=== PATIENT | male | born 1955 | race African-American/Black ===

== ENCOUNTER 2016-05-22 12:49 | Emergency (ER) | payer BC ==
[~2016-05-22] VITALS: Ht 177.8 cm; Wt 70.0 kg
[2016-05-22 12:50] VITALS: BP 133/63; PULSE 67; RESP 15; TEMP 98.1; O2SAT 98
[2016-05-22] MEDS ORDERED: IBUP200C PO (13:03)
[2016-05-22] MEDS ORDERED: PRED50 PO (13:10)
[2016-05-22] MEDS ORDERED: IBUP800T23 PO (13:10)
[2016-05-22] MEDS ORDERED: CYCL1TAB29 PO (13:10)
--- NOTE | 2016-05-22 13:11 | PD ---
HPI Chief Complaint: Hip Injury Time Seen by Provider: 13:06 Travel History International Travel<30 days: No Contact w/Intl Traveler<30days: No Traveled to known affect area: No History of Present Illness HPI Patient is a 61-year-old male who presents emergency for evaluation of right hip pain. Patient denies any injury or trauma. He states the pain started on after work. He did take ibuprofen night and Sunday which relieved his symptoms. He denies any weakness, numbness, bladder or bowel incontinence, saddle paresthesia. He states he's had pain like this before but it's worse now. He thinks it is arthritis since it got worse with cold weather. PFSH Past Medical History Medical History: Denies Significant Hx Social History Alcohol Use: No Tobacco Use: No Substance Use: No Allergies-Medications (Allergen,Severity, Reaction): Coded Allergies: No Known Allergies (Unverified , 05/22/16) Reported Meds & Prescriptions Reported Meds & Active Scripts Active Reported Ibuprofen 200 Mg Cap 200 Mg PO Q6H PRN Review of Systems Except as stated in HPI: all other systems reviewed are Neg Musculoskeletal: Positive: Myalgias, Arthralgias, Pain Physical Exam Narrative GENERAL: Well-nourished, well-developed patient. SKIN: Warm and dry. HEAD: Normocephalic. EYES: No scleral icterus. No injection or drainage. NECK: Supple, trachea midline. No JVD or lymphadenopathy. CARDIOVASCULAR: Regular rate and rhythm without murmurs, gallops, or rubs. RESPIRATORY: Breath sounds equal bilaterally. No accessory muscle use. GASTROINTESTINAL: Abdomen soft, non-tender, nondistended. MUSCULOSKELETAL: No cyanosis, or edema. Tenderness to palpation in right hip on the lateral aspect, no erythema, obvious deformities noted. 5/5 muscle strength in bilateral lower extremities. Patient is neurovascularly intact. BACK: Nontender without obvious deformity. No CVA tenderness. Data Data Last Documented VS Vital Signs Date Time Temp Pulse Resp B/P Pulse Ox O2 Delivery O2 Flow Rate FiO2 05/22/16 12:50 98.1 67 15 133/63 98 MDM Medical Decision Making Medical Screen Exam Complete: Yes Emergency Medical Condition: Yes Interpretation(s) Vital Signs Date Time Temp Pulse Resp B/P Pulse Ox O2 Delivery O2 Flow Rate FiO2 05/22/16 12:50 98.1 67 15 133/63 98 Differential Diagnosis Sprain versus strain versus arthritis versus bursitis versus tendinitis versus other Narrative Course Patient is a 61-year-old male who presents emergency for evaluation of right hip pain that started approximately 5 days ago. Pain is relieved with ibuprofen. Patient is neurovascularly intact, no obvious deformities noted. There was no injury or trauma. Patient is encouraged to take medications as directed, apply warm moist heat to affected area, continue range of motion exercises. Furthermore patient is encouraged to follow-up with her primary care provider return to emergency department for any new or worsening symptoms. Patient verbalizes understanding of these instructions. Patient is stable for discharge. Of note patient was observed ambulating in the emergency department without difficulty. Diagnosis Primary Impression: Hip pain, right Referrals: Primary Care Physician Patient Instructions: General Instructions, Hip Pain (ED) Additional Instructions: Follow-up with a primary doctor Take medications as directed Warm moist heat to affected area, continue range of motion exercises Return to the emergency department for any new or worsening symptoms Med/Other Pt SpecificInfo: Prescription(s) given Scripts Prednisone 50 Mg Tab50 Mg PO DAILY #5 TAB Ref 0 Prov:Carlyn Dutta 05/22/16 Cyclobenzaprine (Flexeril)10 Mg Tab10 Mg PO TID PRN (MUSCLE SPASM) 7 Days Ref 0 Prov:Carlyn Dutta 05/22/16 Ibuprofen 800 Mg [id number] Mg PO Q8H PRN (Pain/Inflammation) #60 TAB Ref 0 Prov:Carlyn Dutta 05/22/16 Disposition: 01 DISCHARGE HOME Condition: Stable Carlyn Dutta May 22, 2016 13:10
== END 2016-05-22 13:45 | disposition home or self-care (01) ==
LOC: NEPB 12:49
DX: M25.551 Pain in right hip (principal)
CPT/HCPCS: 99283

== ENCOUNTER 2016-09-19 17:58 | Emergency (ER) | payer BC ==
[~2016-09-19] VITALS: Ht 177.8 cm; Wt 68.0 kg
[~2016-09-19 17:58] MED LIST: CYCL1TAB29 PO; IBUP200C PO; IBUP800T23 PO; PRED50 PO
[2016-09-19 17:59] VITALS: BP 128/57; PULSE 79; RESP 15; TEMP 97.8; O2SAT 98
--- NOTE | 2016-09-19 18:13 | PD ---
Physical Exam Date Seen by Provider: September 19, 2016 Time Seen by Provider: 18:12 Narrative 61 yo male that presents to the ED for right hip pain. Playing basketball on sunday. Able to walk. Ibuprofen helps. Told work he could make it today. Came here to get it checked. No numbness, tingling or weakness. Ambulatory and in no distress seen at triage. Vitals sign stable. Patient awaiting bed placement. Data Data Last Documented VS Vital Signs Date Time Temp Pulse Resp B/P Pulse Ox O2 Delivery O2 Flow Rate FiO2 09/19/16 17:59 97.8 79 15 128/57 98 MDM Medical Record Reviewed: Yes Supervised Visit with АЛЕКСАНДР: No Mansoor Gore September 19, 2016 18:13
[2016-09-19] MEDS ORDERED: IBUP800T23 PO (18:25)
[2016-09-19] MEDS ORDERED: CYCL1TAB29 PO (18:25)
--- NOTE | 2016-09-19 18:26 | PD ---
HPI Chief Complaint: Musculoskeletal Complaint Time Seen by Provider: 18:22 (Carlyn Dutta) Time Seen by Provider: 18:21 (Allie Baltazar MD) Travel History International Travel<30 days: No Contact w/Intl Traveler<30days: No Traveled to known affect area: No (Carlyn Dutta) History of Present Illness HPI Patient is a 61-year-old male presenting with right hip pain after falling on his right buttock Sunday playing basketball. He states that he called out sick for work today and his work is requesting a note prior to him coming back. He reports the pain is a 3 out of 10, he states it's sore but he has no issues with walking, weakness, numbness. (Carlyn Dutta) [facility] Past Medical History Medical History: Denies Significant Hx (Carlyn Dutta) Social History Alcohol Use: No Tobacco Use: No Substance Use: No (Carlyn Dutta) Allergies-Medications (Allergen,Severity, Reaction): Coded Allergies: No Known Allergies (Unverified , 05/22/16) Reported Meds & Prescriptions Reported Meds & Active Scripts Active Flexeril (Cyclobenzaprine HCl) 10 Mg Tab 10 Mg PO TID PRN 10 Days Ibuprofen 800 Mg Tab 800 Mg PO Q6HR PRN Prednisone 50 Mg Tab 50 Mg PO DAILY Flexeril (Cyclobenzaprine HCl) 10 Mg Tab 10 Mg PO TID PRN 7 Days Ibuprofen 800 Mg Tab 800 Mg PO Q8H PRN Reported Ibuprofen 200 Mg Cap 200 Mg PO Q6H PRN (Allie Baltazar MD) Review of Systems Except as stated in HPI: all other systems reviewed are Neg Musculoskeletal: Positive: Myalgias, No: Edema, Pain Skin: No Change in Pigmentation (Carlyn Dutta) Physical Exam Narrative GENERAL: Well-developed, well-nourished, alert male. SKIN: Focused skin assessment warm/dry. HEAD: Atraumatic. Normocephalic. EYES: Pupils equal and round. No scleral icterus. No injection or drainage. ENT: No nasal bleeding or discharge. Mucous membranes pink and moist. NECK: Trachea midline. No JVD. CARDIOVASCULAR: Regular rate and rhythm. No murmur appreciated. RESPIRATORY: No accessory muscle use. Clear to auscultation. Breath sounds equal bilaterally. GASTROINTESTINAL: Abdomen soft, non-tender, nondistended. Hepatic and splenic margins not palpable. MUSCULOSKELETAL: No obvious deformities. No clubbing. No cyanosis. No edema. NEUROLOGICAL: Awake and alert. No obvious cranial nerve deficits. Motor grossly within normal limits. Normal speech. PSYCHIATRIC: Appropriate mood and affect; insight and judgment normal. (Carlyn Dutta) Data Data Last Documented VS Vital Signs Date Time Temp Pulse Resp B/P Pulse Ox O2 Delivery O2 Flow Rate FiO2 09/19/16 17:59 97.8 79 15 128/57 98 (Allie Baltazar MD) [facility] Medical Decision Making Medical Screen Exam Complete: Yes Emergency Medical Condition: Yes Interpretation(s) Vital Signs Date Time Temp Pulse Resp B/P Pulse Ox O2 Delivery O2 Flow Rate FiO2 09/19/16 17:59 97.8 79 15 128/57 98 Differential Diagnosis Sprain versus strain versus fracture versus other (Carlyn Dutta) Medical Screen Exam Complete: Yes Emergency Medical Condition: Yes Differential Diagnosis Differential diagnosis of joint pain includes but is not limited to arthritis, gout, sprain/strain, fracture, dislocation Narrative Course Patient presents for evaluation of pain. (Allie Baltazar MD) Diagnosis Primary Impression: Hip pain, right Referrals: [facility] Primary Care Physician Patient Instructions: General Instructions, Hip Contusion (ED), Hip Pain (GEN) Additional Instructions: Follow-up with your primary doctor Apply warm heat to the effected area, continue range of motion exercises, avoid bed rest, avoid exacerbating activities Follow-up in the emergency department for any new or worsening symptoms Med/Other Pt SpecificInfo: Prescription(s) given (Carlyn Dutta) Scripts Cyclobenzaprine (Flexeril)10 Mg Tab10 Mg PO TID PRN (MUSCLE SPASM) 10 Days Ref 0 Prov:Carlyn Dutta 09/19/16 Ibuprofen 800 Mg [id number] Mg PO Q6HR PRN (PAIN) #40 TAB Ref 0 Prov:Carlyn Dutta 09/19/16 Disposition: 01 DISCHARGE HOME Condition: Stable Carlyn Dutta September 19, 2016 18:25 Allie Baltazar MD Sep 21, 2016 21:37
== END 2016-09-19 18:36 | disposition home or self-care (01) ==
LOC: NEPK 17:58
DX: M25.551 Pain in right hip (principal); W18.39XA Other fall on same level, initial encounter; Y93.67 Activity, basketball
CPT/HCPCS: 99283

== ENCOUNTER 2017-06-26 11:06 | Emergency (ER) | payer OTHER ==
[~2017-06-26] VITALS: Ht 177.8 cm; Wt 65.0 kg
[~2017-06-26 11:06] MED LIST changes: +CYCL10TA PO; -CYCL1TAB29 PO; +IBUP1TAB7 PO; -IBUP800T23 PO
[2017-06-26 11:20] VITALS: BP 136/63; PULSE 70; RESP 17; TEMP 98.4; O2SAT 99
--- NOTE | 2017-06-26 11:33 | PD ---
HPI Chief Complaint: Pain: Acute or Chronic Time Seen by Provider: 11:26 Travel History International Travel<30 days: No Contact w/Intl Traveler<30days: No Traveled to known affect area: No History of Present Illness HPI Patient comes to the emergency department complaining of right hip pain that he awoke with on Sunday. Patient reports pain is a sharp stabbing pain in his hip that comes and goes. Denies any radiation of pain. Pain is worse with quick movement. Patient been taking [id number] medication for pain control that seems to be helping. Patient reports the pain was so bad on Sunday he had to call out of work and just rested in bed. Patient reports pain is much better today but his job is requiring a note for him to go back to work. Patient reports he feels as though he can do his job without any limitations. Patient denies any fevers, numbness or tingling anywhere, IV drug use, trauma, or loss change in bowel or bladder. PFSH Past Medical History Medical History: Denies Significant Hx Social History Alcohol Use: No Tobacco Use: Yes Substance Use: No Allergies-Medications (Allergen,Severity, Reaction): Coded Allergies: No Known Allergies (Unverified , 05/22/16) Reported Meds & Prescriptions Reported Meds & Active Scripts Active Flexeril (Cyclobenzaprine HCl) 10 Mg Tab 10 Mg PO TID PRN 10 Days Ibuprofen 800 Mg Tab 800 Mg PO Q6HR PRN Prednisone 50 Mg Tab 50 Mg PO DAILY Flexeril (Cyclobenzaprine HCl) 10 Mg Tab 10 Mg PO TID PRN 7 Days Ibuprofen 800 Mg Tab 800 Mg PO Q8H PRN Reported Ibuprofen 200 Mg Cap 200 Mg PO Q6H PRN Review of Systems Except as stated in HPI: all other systems reviewed are Neg Physical Exam Narrative GENERAL: Well-developed, well nourished, in no acute distress, and non-ill appearing. SKIN: Focused skin assessment warm and dry. HEAD: Atraumatic. Normocephalic. EYES: Pupils equal and round. EOMI. No scleral icterus. No injection or drainage. ENT: No nasal bleeding or discharge. Mucous membranes pink and moist. NECK: Trachea midline. Supple. No nuclear rigidity. CARDIOVASCULAR: Dorsal pulses 2+, intact, and equal bilaterally. RESPIRATORY: No accessory muscle use. No respiratory distress. MUSCULOSKELETAL: No obvious deformities. No clubbing. No cyanosis. No edema. Full range of motion. Hip: FROM and equal BL with passive flexion, extension, Abduction, Adduction, and internal/external rotation. Pulses equal BL distal to injury. Capillary refill less than 2 seconds distal to injury and equal BL. FROM distal to injury and equal BL. Strength distal to injury equal BL. NV intact distal to injury and equal BL. Plantar flexion and dorsal flexion equal BL. Dorsal pulses equal BL. Sensation equal BL 1st web space. NEUROLOGICAL: Awake and alert. No obvious cranial nerve deficits. Motor grossly within normal limits. Normal speech. PSYCHIATRIC: Appropriate mood and affect; insight and judgment normal. Data Data Last Documented VS Vital Signs Date Time Temp Pulse Resp B/P (MAP) Pulse Ox O2 Delivery O2 Flow Rate FiO2 06/26/17 11:20 98.4 70 17 136/63 (87) 99 Orders Orders Ed Discharge Order (06/26/17 11:34) [facility] Medical Decision Making Medical Screen Exam Complete: Yes Emergency Medical Condition: Yes Differential Diagnosis Fracture, strain, arthritis, bursitis, avascular necrosis, sciatica Narrative Course There is no clinical evidence for fracture. There is no clinical evidence to suspect bony injury by exam. No obvious ligamental injury or internal derangement is noted at this time. The distal extremity appears neurovascularly intact, without evidence of neurovascular injury nor compartment syndrome. Tendon exam also was intact. The patient was discharged and given warnings for vascular compromise. The patient is to follow up with primary care provider and/ or orthopedics. The patient agrees with plan. Patient in no obvious distress upon re-evaluation. Patient was offered x-rays but is declined at this time. Any questions/concerns in reference to patient diagnosis/condition discussed and clarified prior to patient's discharge. Reinforced sheer importance of close follow up with patient's primary physician or primary care clinic. Instructed patient to return to ED immediately, if symptoms return/worsen. Patient showed understanding of above instructions. Further instructions and recommendations were detailed in discharge paperwork. Patient ambulated without difficulty out of ED at discharge. Diagnosis Primary Impression: Hip pain, right Referrals: Nehemias Mireles MD [facility] Patient Instructions: General Instructions, Hip Pain (ED) Departure Forms: Work Release Enter return to work date: Jun 26, 2017 Special Instructions: Without restrictions. Additional Instructions: Follow-up with your primary care physician and/or orthopedic this week for reevaluation. Use [id number] Tylenol and ibuprofen as needed for pain. Follow instructions on the packaging. Return to the emergency department if symptoms get worse. Disposition: 01 DISCHARGE HOME Condition: Naveed De Leon Jun 26, 2017 11:33
== END 2017-06-26 11:48 | disposition home or self-care (01) ==
LOC: NEPK 11:06
DX: M25.551 Pain in right hip (principal); Z72.0 Tobacco use
CPT/HCPCS: 99281

== ENCOUNTER 2017-07-06 10:14 | Emergency (ER) | payer OTHER ==
[~2017-07-06] VITALS: Ht 177.8 cm; Wt 66.0 kg
[2017-07-06 10:38] VITALS: BP 139/65; PULSE 63; RESP 18; TEMP 98.6; O2SAT 100
--- NOTE | 2017-07-06 12:10 | RADRPT ---
EXAM DATE/TIME: 07/06/2017 11:32 [facility] COMPARISON: No previous studies available for comparison. INDICATIONS : Right hip pain. MEDICAL HISTORY : None. SURGICAL HISTORY : None. ENCOUNTER: Initial ACUITY: 1 day PAIN SCORE: 10/10 LOCATION: Right hip. FINDINGS: There is advanced osteoarthritis of the right hip with joint space narrowing, sclerosis and subchondr al cyst formation. Mild osteoarthritis left hip. No acute bony abnormalities. CONCLUSION: 1. Advanced osteoarthritis of the right hip. London Avalos MD on July 06, 2017 at 12:07 Board Certified Radiologist. This report was verified electronically.
--- NOTE | 2017-07-06 12:11 | PD ---
HPI . Hip pain Chief Complaint: Pain: Acute or Chronic Time Seen by Provider: 11:13 Travel History International Travel<30 days: No Contact w/Intl Traveler<30days: No Traveled to known affect area: No History of Present Illness HPI This patient presents with a chief complaint of hip pain. He reports chronic, intermittent right hip pain for the last 8 years. He states that he was at work today when he had the acute recurrence of the pain. He describes a sharp pain which she rates 9/10. The pain is located over the right greater trochanter. It is exacerbated by twisting the hip and by standing on the hip. It is relieved by being still. There are no associated symptoms.. PFSH Past Medical History Medical History: Denies Significant Hx Tetanus Vaccination: < 5 Years Past Surgical History Surgical History: No Previous Surgery Social History Alcohol Use: Yes Tobacco Use: Yes Substance Use: No Allergies-Medications (Allergen,Severity, Reaction): Coded Allergies: No Known Allergies (Unverified Adverse Reaction, Unknown, 07/06/17) Reported Meds & Prescriptions Reported Meds & Active Scripts Active Review of Systems Except as stated in HPI: all other systems reviewed are Neg Physical Exam Narrative GENERAL: Awake and alert and in no acute distress. SKIN: Warm and dry. HEAD: Normocephalic/atraumatic. EYES: Pupils are equal. Extraocular movements are intact. Currently NECK: Normal range of motion. Bili RESPIRATORY: Nonlabored respirations. Totally MUSCULOSKELETAL: Right hip is tender over the greater trochanter. No tenderness in the groin. Logrolling causes pain over the greater trochanter. He is distally neurovascularly intact. NEUROLOGICAL: Nonfocal. PSYCHIATRIC: Appropriate mood and affect. Data Data Last Documented VS Vital Signs Date Time Temp Pulse Resp B/P (MAP) Pulse Ox O2 Delivery O2 Flow Rate FiO2 07/06/17 10:38 98.6 63 18 139/65 (89) 100 Orders Orders Hip, Uni(Ap&Lat) W Ap Pelvis (07/06/17 11:16) MDM Medical Decision Making Medical Screen Exam Complete: Yes Emergency Medical Condition: Yes Medical Record Reviewed: Yes (Patient has been seen here several times with right hip pain but has never had any x-rays done.) Differential Diagnosis Differential diagnosis of joint pain includes but is not limited to arthritis, gout, sprain/strain, fracture, dislocation, bursitis Narrative Course This patient presents with right hip pain. He is tender over the right greater trochanter. Last Impressions Hip and Pelvis X-Ray 07/06/17 1116 Signed Impressions: Service Date/Time: Thursday, July 06, 2017 11:32 - CONCLUSION: 1. Advanced osteoarthritis of the right hip. London Avalos MD The patient will be informed of his x-ray results. I will treat him with ibuprofen. Diagnosis Primary Impression: Osteoarthritis of right hip Qualified Codes: M16.11 - Unilateral primary osteoarthritis, right hip Patient Instructions: Arthritis (ED), General Instructions Med/Other Pt SpecificInfo: Prescription(s) given Scripts Ibuprofen (Ibuprofen) 800 Mg Tab 800 MG PO Q6HR Y for PAIN, #40 TAB 0 Refills Prov: Allie Baltazar MD 07/06/17 Disposition: 01 DISCHARGE HOME Condition: Stable Allie Baltazar MD Jul 06, 2017 12:11
[2017-07-06] MEDS ORDERED: IBUP1TAB7 PO (12:36)
== END 2017-07-06 12:51 | disposition home or self-care (01) ==
LOC: NEPD 10:14
DX: M16.11 Unilateral primary osteoarthritis, right hip (principal); Z72.0 Tobacco use
CPT/HCPCS: 73502; 99283